=== PATIENT | female | born 1990 | race Caucasian/White ===

== ENCOUNTER 2019-09-08 12:29 | Inpatient (IN) ==
[2019-09-08] MEDS ORDERED: OXYTOCIN/LR 20 UNIT/1,000 ML BAG IV ONE ×2 (12:49→16:47)
[2019-09-08] MEDS ORDERED: METHYLERGONOVINE 0.2 MG/1 ML AMP ONE (12:49)
[2019-09-08] MEDS ORDERED: miSOPROStoL 200 MCG TABLET ONE (12:49)
[2019-09-08] MEDS ORDERED: CARBOPROST TROMETHAMINE 250 MCG/ML AMP IM ONE (12:49)
[2019-09-08] MEDS ORDERED: LIDOCAINE 1% 50 ML VIAL ONE ×3 (12:50→14:36)
[2019-09-08] MEDS ORDERED: ONDANSETRON 4 MG/2 ML VIAL IV ONE (12:53)
[2019-09-08] MEDS ORDERED: PROMETHAZINE 25 MG/1 ML VIAL IM ONE (12:53)
[2019-09-08] MEDS ORDERED: NALOXONE 0.4 MG/ML VIAL IV PRN (12:53)
[2019-09-08] MEDS ORDERED: BUTORPHANOL 2 MG/ML VIAL IV PRN (12:53)
[2019-09-08] MEDS ORDERED: hydrOXYzine HCL 25 MG/1 ML VIAL IM PRN (12:53)
[2019-09-08] MEDS ORDERED: LACTATED RINGERS 1,000 ML IV ONE (12:53)
[2019-09-08] MEDS ORDERED: FAMOTIDINE 20 MG/2 ML VIAL IV ONE (12:53)
[2019-09-08] MEDS ORDERED: diphenhydrAMINE 50 MG/1 ML VIAL IV PRN ×2 (12:53)
[2019-09-08] MEDS ORDERED: CITRIC ACID/SODIUM CITRATE 30 ML UDCUP PO ONE (12:53)
[2019-09-08] MEDS ORDERED: ONDANSETRON 4 MG/2 ML VIAL IV PRN ×2 (12:53→16:47)
[2019-09-08] MEDS ORDERED: ePHEDrine 50 MG/ML AMP IV PRN (12:53)
[2019-09-08] MEDS ORDERED: fentaNYL 2 MCG/ROPIV 0.2% EPID 100 ML EPIDURAL SCH (13:00)
[2019-09-08] MEDS ORDERED: LACTATED RINGERS 1,000 ML IV SCH (13:00)
[2019-09-08] MEDS ORDERED: OXYTOCIN/LR 20 UNIT/1,000 ML BAG IV SCH (13:00)
[2019-09-08 13:06] LABS: Basophils % 0.2 % (0.0-0.8); Eosinophils # 0.1 10*3/uL (0.0-0.87); Eosinophils % 0.7 % (0.00-10.9); Hematocrit 35.1 VOL% (35.7-47.0); Hemoglobin 11.6 GM/DL (12.0-16.0); Immature Granulocytes % 0.2 %; Immature Granulocytes Absolute 0.02 #; Lymphocytes # 1.8 10*3/uL (1.4-4.0); Mean Corpuscular Volume 81.6 FL (87-102); Mean Platelet Volume 9.7 FL (9.6-12.0); Monocytes % 4.8 % (1.7-12.7); Neutrophils % 75.1 % (38.7-73.9); Platelet Count 375 T/CUMM (130-400); Red Cell Distribution Width 13.9 % (9.3-17.3); White Blood Count 9.6 T/CUMM (4-12)
[2019-09-08 13:27] LABS: Albumin 2.7 G/DL (3.4-5.0); Bilirubin,Total 0.4 MG/DL (0.2-1.0); Calcium 8.4 MG/DL (8.5-10.1); Osmolality,Calculated 274.5 MOS/KG (273-304); Total Protein 6.4 G/DL (6.4-8.3); Uric Acid 5.3 MG/DL (2.6-6.0)
[2019-09-08 13:45] LABS: INR 0.8; PT Patient Result 9.1 SECS (9.6-12.2); Partial Thromboplastin Time 23.6 SECS (20.8-36.0)
[2019-09-08] MEDS: MEPERIDINE 50 MG/1 ML VIAL IV PRN ×2 (13:47→14:37)
[2019-09-08] MEDS ORDERED: LIDOCAINE MPF 2% /EPI 20 ML VIAL ONE (14:26)
[2019-09-08] MEDS ORDERED: BUPIVACAINE 0.25% 50 ML VIAL ONE (14:52)
[2019-09-08] MEDS ORDERED: fentaNYL 100 MCG/2 ML VIAL ONE (14:53)
[2019-09-08] MEDS ORDERED: BISACODYL 10 MG SUPP RECTAL PRN (16:47)
[2019-09-08] MEDS ORDERED: LANOLIN 50% CREAM 0.3 OZ TUBE TOP PRN (16:47)
[2019-09-08] MEDS ORDERED: HYDROCORTISONE 2.5% RECTAL CREAM 30 GM TUBE TOP PRN (16:47)
[2019-09-08] MEDS ORDERED: WITCH HAZEL PADS 100/JAR TOP PRN (16:47)
[2019-09-08] MEDS ORDERED: RHO(D) IMMUNE GLOBULIN 300 MCG SYRINGE IM ONE (16:47)
[2019-09-08] MEDS ORDERED: ACETAMINOPHEN 325 MG TABLET PO PRN (16:47)
[2019-09-08] MEDS ORDERED: MEASLES/MUMPS/RUBELLA VACCINE 0.5 ML VIAL SUBCUT ONE (16:47)
[2019-09-08] MEDS ORDERED: DIPH/TET/ACEL PERT BOOSTER VACCINE 0.5 ML VIAL IM ONE (16:47)
[2019-09-08] MEDS ORDERED: BENZOCAINE 20%/MENTHOL 0.5% SPRAY 56 GM CAN TOP PRN (16:47)
[2019-09-08] MEDS: IBUPROFEN 800 MG TABLET PO PRN (19:03)
[2019-09-08] MEDS: oxyCODONE/ACETAMINOPHEN 5-325 MG TABLET PO PRN (22:55)
[2019-09-09] MEDS: IBUPROFEN 800 MG TABLET PO PRN ×2 (04:07→17:05)
[2019-09-09] MEDS: oxyCODONE/ACETAMINOPHEN 5-325 MG TABLET PO PRN ×3 (05:30→17:04)
[2019-09-09 06:01] LABS: Basophils % 0.2 % (0.0-0.8); Eosinophils # 0.1 10*3/uL (0.0-0.87); Eosinophils % 0.4 % (0.00-10.9); Hematocrit 28.2 VOL% (35.7-47.0); Immature Granulocytes % 0.6 %; Immature Granulocytes Absolute 0.07 #; Lymphocytes # 2.5 10*3/uL (1.4-4.0); Lymphocytes % 19.8 % (21.3-54.2); Mean Corpuscular HGB Conc 32.3 GM/DL (32-36); Mean Corpuscular Volume 83.4 FL (87-102); Mean Platelet Volume 10.2 FL (9.6-12.0); Monocytes % 6.9 % (1.7-12.7); Neutrophils % 72.1 % (38.7-73.9)
[2019-09-09 06:02] LABS: Hemoglobin 9.1 GM/DL (12.0-16.0); Platelet Count 266 T/CUMM (130-400); Red Blood Count 3.38 MC/CUMM (3.8-5.5); White Blood Count 12.7 T/CUMM (4-12)
[2019-09-09] MEDS: DOCUSATE SODIUM 100 MG CAPSULE PO SCH ×2 (11:16→20:45)
[2019-09-09] MEDS ORDERED: INFLUENZA VIRUS VACCINE 0.5 ML SYRINGE IM ONE (13:01)
[2019-09-10] MEDS: oxyCODONE/ACETAMINOPHEN 5-325 MG TABLET PO PRN ×2 (00:33→07:27)
[2019-09-10] MEDS: IBUPROFEN 800 MG TABLET PO PRN ×2 (00:34→07:27)
[2019-09-10 08:23] VITALS: BP 105/63
[2019-09-10] MEDS: DOCUSATE SODIUM 100 MG CAPSULE PO SCH (10:00)
[2019-09-10] MEDS ORDERED: FERROUS SULFATE 325 MG TABLET PO SCH (12:00)
== END 2019-09-10 13:50 | disposition home or self-care (01) | DRG 807 ==
LOC: N.LDOUT 12:29 → N.LD 12:30 → N.OB 22:40
PROVIDERS: ADMIT Obstetrics & Gynecology; ATTEND Obstetrics & Gynecology